=== PATIENT | male | born 1950 | race Caucasian/White ===

== ENCOUNTER 2017-03-22 12:14 | Inpatient (IN) | payer OTHER ==
[~2017-03-22] VITALS: Ht 175.3 cm; Wt 89.9 kg
[2017-03-30] MEDS ORDERED: SIMV40TA PO (12:05)
[2017-03-30] MEDS ORDERED: ASPI1TAB69 PO (12:05)
[2017-03-30] MEDS ORDERED: OMEP20TA PO (12:05)
[2017-03-30] MEDS ORDERED: LISI10TA3 PO (12:05)
[2017-03-30] MEDS ORDERED: IBUP800T23 PO (12:15)
[2017-03-31] MEDS ORDERED: METOPROLOL TARTRATE 25 MG TAB PO PRN (08:45)
[2017-03-31] MEDS ORDERED: POVIDONE IODINE 7.5% SCRUB 118 ML BOTTLE TOPICAL SCH (08:45)
[2017-03-31] MEDS ORDERED: DEXAMETHASONE SOD PHOS 20 MG/5 ML VIAL IV SCH (08:45)
[2017-03-31] MEDS ORDERED: CHLORHEXIDINE GLUCONATE 2 % 1 PACK (2 CLOTHS) TOPICAL PRN (08:45)
[2017-03-31] MEDS ORDERED: VANCOMYCIN 1000 MG/NS 250 ML (for <70 kg) IV SCH ×2 (08:45)
[2017-03-31] MEDS ORDERED: ceFAZolin 2 GM PREMIX 50 ML IV SCH (08:45)
[2017-03-31] MEDS ORDERED: POVIDONE IODINE 5% (ANTISEPSIS KIT) 4 APPLICATIONS EACH NARE PRN (08:45)
[2017-03-31] MEDS ORDERED: SODIUM CHLORID 0.9% 500 ML IV PRN (08:45)
[2017-03-31] MEDS ORDERED: LACTATED RINGER'S 1000 ML IV PRN (08:45)
[2017-03-31] MEDS ORDERED: INSULIN HUMAN REGULAR 1,000 UNITS/10 ML VIAL SQ PRN (08:45)
[2017-03-31 08:50] VITALS: BP 146/78; PULSE 79; RESP 16; TEMP 98.7; O2SAT 97
[2017-03-31] MEDS ORDERED: BUPIVACAINE LIPOSOME PF 1.3% 20 ML VIAL ONE (09:40)
[2017-03-31] MEDS ORDERED: ROPIVACAINE PERI-ARTICULAR INJECTION. P-ARTICULR SCH ×5 (10:00)
[2017-03-31] MEDS ORDERED: SODIUM CHLORIDE 0.9% IV SCH ×2 (10:00→13:00)
[2017-03-31] MEDS ORDERED: TRANEXAMIC ACID IV SCH ×2 (10:00→13:00)
[2017-03-31] MEDS ORDERED: ACETAMINOPHEN 1000 MG/100 ML VIAL IV ONE (10:11)
[2017-03-31] MEDS ORDERED: FAMOTIDINE 20 MG/2 ML VIAL ONE (10:36)
[2017-03-31] MEDS ORDERED: MIDAZOLAM HCL 2 MG/2 ML VIAL ONE (10:37)
[2017-03-31] MEDS ORDERED: TRANEXAMIC ACID INJ 1,000 MG/10 ML AMP IV ONE (11:14)
[2017-03-31] MEDS: GENTAMICIN SULFATE 80 MG/2 ML VIAL ONE ×2 (11:50→11:58)
[2017-03-31] MEDS ORDERED: PROPOFOL 200 MG/20 ML AMP IV ONE (12:00)
[2017-03-31] MEDS ORDERED: PHENYLEPH/NS 1000 MCG/10 ML SYR IV ONE (12:00)
[2017-03-31] MEDS ORDERED: LACTATED RINGER'S 1000 ML INJ 1,000 ML IV ONE (12:00)
[2017-03-31] MEDS ORDERED: ONDANSETRON HCL 4 MG/2 ML VIAL IV PUSH ONE (12:00)
[2017-03-31] MEDS ORDERED: NEOSTIGMINE 3 MG/3 ML SYR IV ONE (12:00)
[2017-03-31] MEDS ORDERED: ONDANSETRON HCL 4 MG/2 ML VIAL IVP PRN (13:00)
[2017-03-31] MEDS ORDERED: SODIUM CHLORIDE 0.9% FLUSH 5 ML FLUSH IVF PRN (13:00)
[2017-03-31] MEDS ORDERED: diphenhydrAMINE HCL 50 MG/ML VIAL IV PRN (13:00)
[2017-03-31] MEDS ORDERED: NALOXONE HCL 0.4 MG/ML AMP IV PRN (13:00)
[2017-03-31] MEDS ORDERED: ALUMINUM/MAGNESIUM/SIMETH 30 ML CUP PO PRN (13:00)
[2017-03-31] MEDS ORDERED: ZOLPIDEM TARTRATE 5 MG TAB PO PRN (13:00)
[2017-03-31] MEDS ORDERED: MAGNESIUM HYDROXIDE SUSP 30 ML CUP PO PRN (13:00)
[2017-03-31] MEDS ORDERED: Post-op Orders (for Pharmacy) MISC XX ONE (13:00)
[2017-03-31] MEDS ORDERED: MORPHINE SULFATE 4 MG/ML INJ IV PUSH PRN (13:00)
[2017-03-31] MEDS ORDERED: BISACODYL 10 MG SUPP RECTAL PRN (13:00)
--- NOTE | 2017-03-31 13:00 | PD.OP ---
cc: Jeovanny Cloud MD Operative Report Date of Surgery: March 31, 2017 Preoperative Diagnosis: Left knee severe osteoarthritis Postoperative Diagnosis: Same Procedure: Left total knee arthroplasty Anesthesia: Gen. and adductor canal block Surgeon: Jeovanny Cloud Program Therapist(s): GAL Skaggs The surgical procedure was assisted by my Advanced Registered Nurse Practitioner. My LENS GRINDER APPRENTICE presence was necessary throughout this case for the manipulation and positioning of the surgical extremity. My LENS GRINDER APPRENTICE was assisting me throughout the duration of this procedure. The skill set of an Advance Registered Nurse Practitioner was medically necessary to complete this procedure. During the surgical case, the lead neurodiagnostic technologist was working at the back table and the Advance Registered Nurse Practitioner was directly assisting me. Operation and Findings: IMPLANTS: DePuy Attune: Patella: size 35. Femur, posterior stabilized size 8. Tibia, rotating platform size 7. Tibial insert, rotating platform, posterior stabilized size 5 mm thickness. ESTIMATED BLOOD LOSS: 100 cc TOURNIQUET TIME: 41 minutes at 250 mmHg pressure. JUSTIFICATION FOR PROCEDURE: The patient has end-stage osteoarthritis to the knee. There is an attached conservative measures pathway form in the chart that describes the nonoperative measures that were undertaken prior to consideration of surgical management. The patient understood the risks and benefits of surgical management. See my office notes for further details PROCEDURE: The patient was brought back to the operative theatre. Adequate anesthesia was obtained. The patient received intravenous vancomycin and Ancef. The lower extremity was prepped and draped in the usual sterile fashion.The leg was exsanguinated, the tourniquet was raised. A standard anterior incision was performed followed by medial parapatellar arthrotomy was performed. End-stage arthritis was identified. Osteotomy of the patella was performed. We drilled holes for the patella. We trialed the patella component. We placed an intramedullary guide into the distal femur. We ultimately resected 11 mm off of the distal femur in 5 degrees of valgus. The remnants of the ACL and PCL were resected. Osteotomy of the proximal tibia was performed, resecting 5 mm off of the medial side. This was done with 3 degrees of posterior slope using an extramedullary guide. The distal end of the guide was placed in the mid aspect of the ankle. The femur was sized, and four chamfer cuts were completed in 3 of external rotation. We then cut the central box in the distal femur to replace the PCL. We resected the remnants of the menisci and removed osteophytes off of the femur and tibia. We then trialed the knee. We punched the tibia for the keel, and then used standard technique to cement in components. Excess cement was removed. We trialed the knee again and the final polyethylene thickness was chosen to provide extension to 0 degrees, and flexion of 140 degrees to gravity. The ligaments were appropriately balanced. Lateral release was not necessary to obtain excellent patellofemoral tracking. The tourniquet was released and adequate hemostasis was obtained. An intra- articular injection of a ropivacaine cocktail was injected. The posterior knee was inspected for excess cement, which was removed. The final polyethylene was put into position after thorough irrigation. We then closed deep fascia with a #2 Stratafix followed by skin with 2-0 Vicryl followed by sahra. Postop plan is to weight-bear as tolerated. DVT prophylaxis will be performed with Nam, HIREN tubbs, early mobilization, and Lovenox followed by aspirin. Jeovanny Cloud MD March 31, 2017 13:00
[2017-03-31] MEDS ORDERED: DO NOT ADM ANY ANTICOAGULANT DRUGS PRN (13:26)
[2017-03-31] MEDS ORDERED: fentaNYL CITRATE 250 MCG/5 ML AMP ONE (13:33)
[2017-03-31] MEDS: SODIUM CHLOR 0.9% 1000 ML INJ 1,000 ML IV SCH ×2 (14:00→22:57)
--- NOTE | 2017-03-31 14:04 | RADRPT ---
EXAM DATE/TIME: 03/31/2017 13:28 [facility] COMPARISON: No previous studies available for comparison. INDICATIONS : Post op left knee surgery. MEDICAL HISTORY : None. SURGICAL HISTORY : None. ENCOUNTER: Initial ACUITY: 1 day PAIN SCORE: 0/10 LOCATION: Left knee FINDINGS: Examination of the knee demonstrates arthroplasty in satisfactory position. The alignment is anatomic . CONCLUSION: Post surgical changes as above. Liban Raman MD on March 31, 2017 at 14:02 Board Certified Radiologist. This report was verified electronically.
--- NOTE | 2017-03-31 15:21 | HHI.DCPOC ---
Discharge Care Plan Diagnosis: (1) Primary localized osteoarthrosis, lower leg (2) Status post total knee replacement, left Your Health Problems Are: Difficulty with ADL Goals to Promote Your Health * To prevent worsening of your condition and complications * To maintain your health at the optimal level Directions to Meet Your Goals Take your medications as prescribed Follow your dietary instruction Follow activity as directed Keep your appointments as scheduled Take your immunizations and boosters as scheduled If your symptoms worsen call your PCP, if no PCP go to Urgent Care Center or Emergency Room Smoking is Dangerous to Your Health. Avoid second hand smoke Call the 24-hour hour crisis hotline for domestic abuse at Shaun Padilla March 31, 2017 15:21
--- NOTE | 2017-03-31 15:22 | HHI.FF ---
Face to Face Verification Diagnosis: (1) Primary localized osteoarthrosis, lower leg (2) Status post total knee replacement, left Physical Therapy Gait training, Transfer training, bed to chair Knee: Total knee Left LE Weight Bearing: WB as tolerated Left LE Range of Motion: Active ROM Nursing Nursing: Melissa teaching, Dressing changes Dressing Changes: Daily dressing change I have seen patient Fernie Samaniego on 03/31/17. My clinical findings support the need for the requested home health care services because: Limited ability to care for self High risk of falls I certify that my clinical findings support that this patient is homebound because: Post-op weakness Unsteady gait/balance Shaun Padilla March 31, 2017 15:21
[2017-03-31] MEDS ORDERED: COMMODE 3-IN-11 MIS (15:23)
[2017-03-31] MEDS ORDERED: CPMMACHINE (15:23)
[2017-03-31] MEDS ORDERED: WALKER WHEELS/F1 MIS (15:23)
[2017-03-31] MEDS ORDERED: *morphine SULFATE 8 MG/ML PERIprocedure ONLY ONE (15:47)
[2017-03-31 16:27] VITALS: BP 136/76; PULSE 112; RESP 17; TEMP 96.8; O2SAT 95
[2017-03-31] MEDS: ACETAMINOPHEN/HYDROcodone 325 MG/5 MG TAB PO PRN ×2 (17:10→20:59)
[2017-03-31 20:05] VITALS: BP 118/64; PULSE 99; RESP 17; TEMP 98; O2SAT 98
[2017-03-31] MEDS: SODIUM CHLORIDE 0.9% FLUSH 5 ML FLUSH IVF SCH (20:52)
[2017-03-31] MEDS ORDERED: PRAVASTATIN SOD 80 MG TAB PO SCH (21:00)
[2017-04-01 00:05] VITALS: BP 111/58; PULSE 100; RESP 17; TEMP 96.9; O2SAT 97
[2017-04-01] MEDS: SODIUM CHLOR 0.9% 1000 ML INJ 1,000 ML IV SCH ×2 (03:00→08:57)
[2017-04-01 04:05] VITALS: BP 99/70; PULSE 98; RESP 17; TEMP 98.1; O2SAT 96
[2017-04-01] MEDS: ACETAMINOPHEN/HYDROcodone 325 MG/5 MG TAB PO PRN ×3 (04:25→13:44)
[2017-04-01 07:09] VITALS: BP 126/77; PULSE 88; RESP 17; TEMP 96.7; O2SAT 97
[2017-04-01 07:37] LABS: HEMATOCRIT 36.4 % (39.0-51.0); MEAN CELL VOLUME 88.6 FL (80.0-100.0); MEAN CORPUSCULAR HEMOGLOBIN 28.7 PG (27.0-34.0); MEAN CORPUSCULAR HGB CONC 32.4 % (32.0-36.0); PLATELET COUNT 148 TH/MM3 (150-450); RED CELL DISTRIBUTION WIDTH 13.2 % (11.6-17.2); REVIEW FLAG FINAL; WHITE BLOOD COUNT 21.8 TH/MM3 (4.0-11.0)
[2017-04-01] MEDS ORDERED: DEXAMETHASONE SOD PHOS 20 MG/5 ML VIAL IV ONE (07:45)
[2017-04-01] MEDS ORDERED: PANTOPRAZOLE SOD 20 MG DELAYED RELEASE TAB PO SCH (09:00)
[2017-04-01] MEDS: SODIUM CHLORIDE 0.9% FLUSH 5 ML FLUSH IVF SCH (09:00)
[2017-04-01] MEDS ORDERED: LISINOPRIL 10 MG TAB PO SCH (09:00)
[2017-04-01 10:46] VITALS: O2SAT 96
[2017-04-01 11:50] VITALS: BP 111/62; PULSE 92; RESP 17; TEMP 97.2; O2SAT 96
[2017-04-01] MEDS ORDERED: ENOXAPARIN SODIUM 40 MG/0.4 ML SYRINGE SQ SCH (12:00)
--- NOTE | 2017-04-01 13:36 | PD.ORT.PN ---
Subjective Post Op Day #: 1 Subjective Remarks Patient OOB, dressed and ambulatory. Patient ready for discharge home with home health. Minimal pain to the left knee. Objective Vitals Vital Signs Date Time Temp Pulse Resp B/P Pulse Ox O2 Delivery O2 Flow Rate FiO2 04/01/17 11:50 97.2 92 17 111/62 96 04/01/17 10:46 96 21 04/01/17 07:09 96.7 88 17 126/77 97 04/01/17 04:05 98.1 98 17 99/70 96 04/01/17 00:05 96.9 100 17 111/58 97 03/31/17 21:55 18 03/31/17 20:05 98.0 99 17 118/64 98 03/31/17 16:27 96.8 112 17 136/76 95 03/31/17 16:00 98.7 106 20 131/59 96 Room Air 03/31/17 15:30 107 20 127/61 95 Room Air 03/31/17 15:15 106 20 135/63 95 Room Air 03/31/17 15:00 113 20 145/71 96 Room Air 03/31/17 14:45 108 20 140/66 95 Room Air 03/31/17 14:30 102 20 128/64 94 Room Air 03/31/17 14:15 102 20 135/65 95 Room Air 03/31/17 14:00 101 20 125/68 94 Nasal Cannula 2 03/31/17 13:45 106 20 147/74 96 Nasal Cannula 2 03/31/17 13:30 104 20 134/74 96 Nasal Cannula 2 03/31/17 13:26 98.0 116 20 161/91 98 Nasal Cannula 2 I/O 03/31/17 03/31/17 03/31/17 04/01/17 04/01/17 04/01/17 07:00 15:00 23:00 07:00 15:00 23:00 Intake Total 1400 ml 1174 ml 777 ml Output Total 325 ml 500 ml 1450 ml Balance 1075 ml 674 ml -673 ml Intake Oral 360 ml 240 ml IV Total 814 ml 537 ml Other 1400 ml Output Urine Total 500 ml 1450 ml Estimated Blood Loss 100 ml Other 225 ml # Bowel Movements 0 0 Result Diagram: 04/01/17 0655 Procedures Left TKA Objective Remarks The patient's dressing was changed with scant serosanguineous drainage. Incision is well approximated with surgical clips intact. Mild hyperemia to knee. No redness or s/s of infection. EHL/TA/G intact. 2+ pedal pulse. Calf is soft and nontender. Minimal swelling. + SILT. Leukocytosis with unknown cause. Patient has no cough/SOB and no urinary complaints. Assessment & Plan Ortho Post Op Day #: 1 Problem List: Assessment and Plan POD #1: Left TKA 1. WBAT LLE 2. Lovenox followed by ASA for DVT prophylaxis 3. Ice to the left knee PRN 4. Repeat CBC to look at WBC (leukocytosis) 5. Stable for discharge home with home health today if CBC (WBC) is better. Shaun Padilla April 01, 2017 13:36
[2017-04-01 15:49] LABS: AUTOMATED NEUTROPHIL # 16.8 TH/MM3 (1.8-7.7); BASOPHIL % 0.1 % (0.0-2.0); HEMATOCRIT 37.6 % (39.0-51.0); HEMO FLAGS DIFF FINAL; LYMPHOCYTE # 0.4 TH/MM3 (1.0-4.8); MEAN CORPUSCULAR HEMOGLOBIN 28.4 PG (27.0-34.0); MEAN CORPUSCULAR HGB CONC 32.2 % (32.0-36.0); MONO % 4.4 % (0.0-8.0); NEUT % 93.5 % (16.0-70.0); PLATELET COUNT 161 TH/MM3 (150-450); RED BLOOD COUNT 4.28 MIL/MM3 (4.50-5.90); RED CELL DISTRIBUTION WIDTH 13.8 % (11.6-17.2)
[2017-04-01 15:55] VITALS: BP 128/79; PULSE 90; RESP 17; TEMP 98.4; O2SAT 96
[2017-04-01] MEDS ORDERED: DOCUSATE SODIUM 100 MG CAP PO SCH (21:00)
[2017-04-01] MEDS ORDERED: MULTIVITAMINS/MINERALS THERAPEUTIC TAB PO SCH (21:00)
--- NOTE | 2017-04-06 17:29 | HHI.DS ---
Discharge Summary Admission Date March 31, 2017 at 07:54 Discharge Date: April 01, 2017 Admitting Diagnosis Primary localized OA, lower leg Status post total knee replacement, left Diagnosis: (1) Primary localized osteoarthrosis, lower leg Diagnosis: Principal (2) Status post total knee replacement, left Diagnosis: Principal Procedures Left TKA Brief History This is a 67 year old male patient with severe OA of the left knee PE at Discharge The patient's dressing was changed with scant serosanguineous drainage. Incision is well approximated with surgical clips intact. Mild hyperemia to knee. No redness or s/s of infection. EHL/TA/G intact. 2+ pedal pulse. Calf is soft and nontender. Minimal swelling. + SILT. Leukocytosis with unknown cause. Patient has no cough/SOB and no urinary complaints. Hospital Course The patient was admitted to the hospital with severe OA of the left knee to have a left TKA. The patient's surgery went well with no complications. The patient is WBAT post op. The patient is on a regular diet. The patient was placed on Lovenox followed by ASA for DVT prophylaxis. The patient did have some leukocytosis and had repeat labs before being discharged. The repeat labs showed a decrease in WBCs. The patient ended up with some increased hyperemia and redness to the knee around the time of discharge and was sent home on PO ABX. The patient was discharged home with home health and will f/u with Dr. Cloud the first of the week for close f/u for the knee secondary to redness and elevated WBCs. Pt Condition on Discharge: Stable Discharge Disposition: Disch w/ Home Health Serv Discharge Instructions Diet Instructions: As Tolerated, No Restrictions Activities You Can Perform: Weight Bearing as Juan Activities to Avoid: Strenuous Activity Follow up Referrals: Orthopedics with Jeovanny Cloud MD SNF/[facility]/ with Nurse manager consumer [phone] New Medications: Commode 3-in-1 (Commode 3-in-1) 1 Mis Mis 1 EA .ROUTE DIRECTED #1 Ref 0 EA CPM-Continuous Passive Motion Machine (CPM-Continuous Passive Motion Machine) 1 Ea Device 1 EA .ROUTE DIRECTED #1 Ref 0 EA Walker with Front Wheels (Walker with Front Wheels) 1 Mis Mis 1 EA .ROUTE DIRECTED #1 Ref 0 EA Continued Medications: Lisinopril (Lisinopril) 10 Mg Tab 10 MG PO DAILY #30 Ref 0 TAB Omeprazole (Omeprazole) 20 Mg Tab 20 MG PO DAILY #30 Ref 0 TAB Simvastatin (Simvastatin) 40 Mg Tab 40 MG PO HS Cholesterol Management #30 Ref 0 TAB Discontinued Medications: Aspirin (Aspirin) 81 Mg Tabdr 81 MG PO DAILY TAB Ibuprofen (Ibuprofen) 800 Mg Tab 800 MG PO BID Arthritis Pain Ref 0 TAB Shaun Padilla April 06, 2017 17:29
== END 2017-04-01 18:20 | disposition home health service (06) | DRG 470 ==
LOC: HSDI 03-31 07:54 → N06B 03-31 16:20
PROVIDERS: ADMIT Orthopaedic Surgery; ATTEND Orthopaedic Surgery
PROC: 0SRD0J9 Replacement of Left Knee Joint with Synthetic Substitute, Cemented, Open Approach (ICD-10-PCS; principal; 2017-03-31 11:00)
DX: M17.12 Unilateral primary osteoarthritis, left knee (principal); D72.829 Elevated white blood cell count, unspecified
CPT/HCPCS: 73560; 85025; 85027; 86850; 86900; 86901; 94150; C1776; C9290; J0131; J0171; J0690; J0735; J1100; J1580; J1650; J1885; J2250; J2270; J2370; J2405; J2710; J2795; J3010; J3370; J7030; J7050; J7120; L1830